=== PATIENT | male | born 1945 | race Caucasian/White ===

== ENCOUNTER → 2016-09-14 | Outpatient (CLI) | payer BC, MEDICARE ==
[2016-09-14 10:57] LABS: Basophils # (A) 0.1 k/uL (0-0.2); Basophils % (A) 1 %; CH 30.9; CHCM 32.9; Eosinophils # (A) 0.1 k/uL (0-0.7); Eosinophils % (A) 2 %; HCT 44.7 % (39.0-53.0); HDW 2.22; HGB 14.5 gm/dL (13.0-17.5); Luc # (Auto) 0.12; Luc % (Auto) 1; Lymphocytes # (A) 1.9 k/uL (1.0-4.8); Lymphocytes % (A) 22 %; MCH 30.6 pg (25.0-35.0); MCHC 32.4 g/dL (31.0-37.0); MCV 94.2 fL (80.0-100.0); Mean Platelet Volume 7.6; Monocytes # (A) 0.5 k/uL (0-1.0); Monocytes % (A) 5 %; Neutrophils # (A) 6.1 k/uL (1.3-7.7); Neutrophils % (A) 69 %; RBC 4.74 m/uL (4.30-5.90); WBC 8.7 k/uL (3.8-10.6); WBC (Perox) 9.01
[2016-09-14 11:07] LABS: Partial Thromboplastin Time 24.1 sec (22.0-30.0); Prothrombin Time 9.8 sec (9.0-12.0)
[2016-09-14 11:24] LABS: Potassium 4.6 mmol/L (3.5-5.1)
== END | disposition home or self-care (01) ==
LOC: LABMOB 10:14
PROVIDERS: ATTEND Orthopaedic Surgery
DX: Z01.812 Encounter for preprocedural laboratory examination (principal); M19.012 Primary osteoarthritis, left shoulder; Z51.81 Encounter for therapeutic drug level monitoring; Z79.01 Long term (current) use of anticoagulants
CPT/HCPCS: 36415; 80051; 85025; 85610; 85730

== ENCOUNTER 2016-10-04 07:08 | Inpatient (IN) | payer BC, MEDICARE ==
[2016-09-29 11:25] VITALS: BMI 29.5
--- NOTE | 2016-10-03 11:31 | HP ---
DATE OF ADMISSION: CHIEF COMPLAINT: Left shoulder pain. 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 He is having pain with overhead use and at night. He has tried medications with only partial temporary relief. PAST MEDICAL HISTORY: Significant for arthritis. PAST SURGICAL HISTORY: Significant for right total shoulder arthroplasty. CURRENT MEDICATIONS: 1. Aspirin. 2. Ibuprofen. He denies drug allergies. FAMILY HISTORY: Significant for heart disease. SOCIAL HISTORY: Significant for previous tobacco use; however, he quit in 1964. Sixteen-point review of systems otherwise reviewed and is noncontributory. On examination, the patient is approximately 6 feet tall, 210 pounds of mesomorphic habitus. HEENT exam is nonfocal. Neck is supple. On examination of his left shoulder, he is tender about the anterior subacromial space the anterior glenohumeral joint. He has moderate subacromial crepitus. Active range of motion, forward elevation 135 degrees, external rotation with arm at the side 15 degrees, internal rotation to T12. Motor strength is 5/5 for abduction and external rotation. Impingement, Neer test are positive. His distal neurovascular exam appears be intact in the left upper extremity. X-rays to include AP outlet and axillary lateral views of the left shoulder obtained in the office show severe glenohumeral joint osteoarthrosis with maintained humeral head to acromial distance. IMPRESSION: Left shoulder severe glenohumeral joint osteoarthrosis. RECOMMENDATIONS: I talked to the patient at length regarding his treatment options. At this point he is quite symptomatic despite conservative measures. After thorough discussion, he opts to proceed with surgery. We will plan to proceed with left total shoulder arthroplasty. Risks and benefits are discussed at length in layman's terms.
[~2016-10-04 07:08] MED LIST: ACETAMINOPHEN TAB 500 MG TAB PO ONE; DEXAMETHASONE SOD PHOSPHATE 10 MG/ML 1 ML VIAL IV ONE; HYDROmorphone 1 MG/ML 1 ML SYRINGE IVP PRN; MELOXICAM 7.5 MG TAB PO ONE; MIDAZOLAM 2 MG/2 ML VIAL IV PRN; ONDANSETRON 4 MG/2 ML VIAL IVP ONE; TRANEXAMIC ACID 1,000 MG in SODIUM CHLORIDE 0.9% 100 ML IVPB ONE; ceFAZolin 2 GM in SODIUM CHLORIDE 0.9% 100 ML IVPB ONE
[2016-10-04] MEDS ORDERED: LIDOCAINE 1% 20 ML VIAL (10MG/ML) FOR IV START INTRADERMA ONE (09:33)
[2016-10-04] MEDS: LACTATED RINGERS 1,000 ML IV SCH (09:34)
[2016-10-04] MEDS ORDERED: NEOSTIGMINE 1 MG/ML 10 ML VIAL ONE (10:55)
[2016-10-04] MEDS ORDERED: PHENYLEPHRINE-0.9% NACL SYG 1 MG/10 ML SYRINGE ONE (10:55)
[2016-10-04] MEDS ORDERED: fentaNYL (PF) 50 MCG/ML 2 ML AMP ONE (10:55)
[2016-10-04] MEDS ORDERED: MIDAZOLAM 2 MG/2 ML VIAL ONE (10:55)
[2016-10-04] MEDS ORDERED: SUCCINYLCHOLINE CHLORIDE 100 MG/5 ML SYR IV ONE (10:55)
[2016-10-04] MEDS ORDERED: ROPIVACAINE 5 MG/ML 30 ML VIAL ONE (10:55)
[2016-10-04] MEDS ORDERED: LIDOCAINE 2%-EPI 1:100,000 20 ML VIAL ONE (10:55)
[2016-10-04] MEDS ORDERED: ROCURONIUM BROMIDE 10 MG/ML 10 ML VIAL IV ONE (10:55)
[2016-10-04] MEDS ORDERED: LIDOCAINE 1% INJ 10MG/ML (20 ML MDV) ONE (10:55)
[2016-10-04] MEDS ORDERED: GLYCOPYRROLATE 0.2 MG/ML 2 ML VIAL ONE (10:55)
[2016-10-04] MEDS ORDERED: PROPOFOL 10 MG/ML 20 ML VIAL IV ONE (10:55)
[2016-10-04] MEDS ORDERED: ceFAZolin 3,000 MG in SODIUM CHLORIDE 0.9% IRRIGATIO 3,000 ML IRRIGATION ONE (11:37)
[2016-10-04] MEDS ORDERED: LACTATED RINGERS 1,000 ML IV ONE (13:07)
[2016-10-04] MEDS ORDERED: HYDROcodone/APAP 7.5-325MG 1 EACH TAB PO PRN (13:42)
[2016-10-04] MEDS ORDERED: NALOXONE 0.4 MG/ML 1 ML VIAL IV PRN (13:42)
[2016-10-04] MEDS ORDERED: ONDANSETRON 4 MG/2 ML VIAL IVP PRN (13:42)
--- NOTE | 2016-10-04 13:42 | P.OP ---
Date of Procedure: 10/04/16 Preoperative Diagnosis: Severe left glenohumeral joint osteoarthrosis Postoperative Diagnosis: Same Procedure(s) Performed: Left total shoulder arthroplasty Implants: [employer] size 14 press-fit humeral stem, 52 mm +18 eccentric humeral head, 52 mm pegged cemented glenoid component. Anesthesia: [facility] Surgeon: Mikey Mares Estimated Blood Loss (ml): 250 Pathology: other (Humeral head) Condition: stable Disposition: PACU Indications for Procedure: The patient is a 71-year-old gentleman who presents with progressive left shoulder pain secondary to severe glenohumeral joint osteoarthrosis despite conservative measures. A discussion of the risks and benefits of operative intervention versus continued conservative measures was made with patient. He opted to proceed with surgery. Operative risks to include infection, neurovascular injury, development of blood clots, possible component loosening, possible dislocation and need for subsequent procedures was discussed. Informed consent was obtained. Operative Findings: As below Description of Procedure: The patient was brought to the operating room, and after induction of general anesthesia was placed in a beachchair position. The bony prominences were appropriately padded. I examined the left shoulder. He did have limitation of full forward elevation and abduction. The left upper extremity was prepped and draped in normal fashion. A deltopectoral incision was made lateral to the coracoid process extending approximately 12 cm. The skin was incised sharply. Subcutaneous tissues were divided bluntly. Electrocautery was used for hemostasis. The deltopectoral interval was identified and the cephalic vein gently retracted laterally with deltoid. Subdeltoid adhesions were bluntly dissected. A self-retaining retractor was placed. The clavipectoral fascia was opened and the conjoined tendon was gently retracted medially. The biceps was identified and the bicipital groove was then removed. The rotator interval was opened to the glenoid. A biceps tenotomy is performed along with a lesser tuberosity osteotomy. The capsular was released off the humeral head and neck subperiosteally. I expose the inferior osteophytes which were then removed at the junction of the [place] bone. The shoulder was gently dislocated. A starting hole was made in line with the humeral shaft and bicipital groove. The humeral shaft was then hand reamed up to a size 14. There is good distal fit and chatter. The humeral head cutting guide was placed planning on 30 of retroversion. This was cut flush with the rotator cuff insertion on the greater tuberosity. The head sized most appropriately at 52 mm +18. Attention was then paid towards preparing the glenoid. A posterior and anterior retractor placed. The labrum was released from the 12:00 counterclockwise to the 6 o'clock position. I felt there was adequate glenoid exposure at this point. The biceps was excised from the superior labrum. A guidepin was then placed into the central portion of the glenoid anterior to posterior and inferior to superior. I followed the [place] version. The glenoid was then reamed down to a bleeding stable bony surface. The central peg hole was drilled. The glenoid sized most appropriately at 52 mm. The guide was then placed in the peripheral peg holes were drilled. A trial 52 mm component was placed and had good anterior to posterior and superior to inferior fit. Trial component was then removed. The bony surface was dried and the peripheral peg holes were pressurized with cement utilizing a syringe. Excess cement was removed. I did place bone graft from the central peg on the final component. This was then inserted and was fully seated. This was held in place until the cement had sufficiently hardened. Attention was then paid towards preparing the proximal humerus. The appropriate broach was inserted in 30 of retroversion and was fully seated. There is good rotational stability. This was removed and the trial size 14 component was placed in the same rotation and was seated. An eccentric 52 mm +18 head was placed. The shoulder was gently relocated. It was taken through range of motion. I was able to obtain full flexion and extension with good stability with internal and external rotation. I felt there was adequate mu-ism of soft tissue tension. The shoulder was gently dislocated and the trial components were removed. A #2 Ethibond was placed laterally for reattachment of the lesser tuberosity. The final stem was inserted in 30 of retroversion and was fully seated. There was good rotational stability. The eccentric 52 mm +18 head was placed. It was gently impacted. The shoulder was relocated and taken through range of motion and felt to be again stable. Pulsatile lavage was utilized. A lesser tuberosity was reattached with the previously placed #2 Ethibond suture. The rotator interval was closed with #2 Ethibond suture. The subcutaneous tissues were reapproximated with interrupted 2-0 Vicryl sutures. The skin was reapproximated with 3-0 subcuticular strata fix suture. Skin tape and adhesive was applied. A sterile dressing was applied in addition to a sling. The patient was then awoken from general anesthesia and transferred to recovery room in good condition. Blood loss was estimated at 250 mL. No complications were incurred. Sponge and needle counts were correct in the case.
--- NOTE | 2016-10-04 14:10 | XR ---
EXAMINATION TYPE: XR shoulder limited LT DATE OF EXAM: 10/04/2016 2:05 PM COMPARISON: NONE HISTORY: Pain TECHNIQUE: Shoulder examined in 3 FINDINGS: There is a left humeral prosthesis. The glenoid articulates with the prosthesis. No acute fractures e vident post insertion. IMPRESSION: 1. Normal postsurgical left shoulder
[2016-10-04] MEDS: ceFAZolin 2 GM in SODIUM CHLORIDE 0.9% 100 ML IVPB SCH (17:06)
[2016-10-04] MEDS: NICOTINE 21MG/24HR PATCH TRANSDERM SCH (17:06)
[2016-10-04] MEDS: HYDROcodone/APAP 7.5-325MG 1 EACH TAB PO PRN (23:41)
[2016-10-05] MEDS: HYDROmorphone 1 MG/ML 1 ML SYRINGE IVP PRN ×3 (01:59→09:46)
[2016-10-05] MEDS: ceFAZolin 2 GM in SODIUM CHLORIDE 0.9% 100 ML IVPB SCH (03:01)
[2016-10-05] MEDS: HYDROcodone/APAP 7.5-325MG 1 EACH TAB PO PRN ×2 (04:47→11:36)
[2016-10-05] MEDS: LACTATED RINGERS 1,000 ML IV SCH (04:49)
[2016-10-05 07:44] LABS: Basophils % (A) 0 %; CH 30.5; CHCM 32.4; Eosinophils % (A) 0 %; HCT 32.7 % (39.0-53.0); HDW 2.17; Luc # (Auto) 0.17; Luc % (Auto) 2; Lymphocytes # (A) 1.4 k/uL (1.0-4.8); Lymphocytes % (A) 13 %; MCH 30.1 pg (25.0-35.0); MCHC 31.9 g/dL (31.0-37.0); MCV 94.5 fL (80.0-100.0); Mean Platelet Volume 7.5; Monocytes # (A) 0.4 k/uL (0-1.0); Monocytes % (A) 4 %; Neutrophils # (A) 8.5 k/uL (1.3-7.7); Neutrophils % (A) 81 %; RBC 3.46 m/uL (4.30-5.90); RDW 12.8 % (11.5-15.5); WBC 10.5 k/uL (3.8-10.6); WBC (Perox) 10.72
[2016-10-05 07:49] LABS: HGB 10.4 gm/dL (13.0-17.5)
[2016-10-05] MEDS: NICOTINE 21MG/24HR PATCH TRANSDERM SCH (08:35)
[2016-10-05] MEDS ORDERED: RIVAROXABAN 10 MG TAB PO SCH (09:00)
[2016-10-05 09:03] VITALS: RESP 16
--- NOTE | 2016-10-05 11:29 | P.PN ---
Progress Note - Text S: The patient has no complaints. They deny shortness of breath or chest pain. 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
--- NOTE | 2016-10-05 11:39 | P.DS ---
Providers Date of admission: 10/04/16 08:47 10/03/2016 Expected date of discharge: 10/04/16 Attending physician: Mikey Mares Consults: 10/04/16 13:51 Consult Physician Routine Consulting Provider: Aristides Meier Consult Reason/Comments: medical management Do you want consulting provider notified?: Yes Primary care physician: [facility] Course: The patient underwent left total shoulder arthroplasty without complication. Postoperatively, he had good return of bowel and bladder function. His incision was clean and dry. His vital signs were stable. His pain was well tolerated. Procedures: Left total shoulder arthroplasty Patient Condition at Discharge: Good Plan - Discharge Summary New Discharge Prescriptions: Aspirin EC [Ecotrin] 325 mg PO BID #60 tablet. HYDROcodone/APAP 7.5-325MG [[place] 7.5-325] 1 - 2 tab PO Q4H PRN #60 tab PRN Reason: Pain/Discomfort Discharge Medication List Aspirin [Adult Low Dose Aspirin EC] 81 mg PO DAILY 10/05/15 [History] Ascorbic Acid [Vitamin C] 500 mg PO DAILY 09/30/16 [History] Atorvastatin [Lipitor] 20 mg PO DAILY 09/30/16 [History] amLODIPine BESYLATE [Norvasc] 2.5 mg PO DAILY 09/30/16 [History] Aspirin EC [Ecotrin] 325 mg PO BID #60 tablet. 10/05/16 [Rx] HYDROcodone/APAP 7.5-325MG [[place] 7.5-325] 1 - 2 tab PO Q4H PRN #60 tab [Rx] Follow up Appointment(s)/Referral(s): Bobby Patel PAC [PHYSICIAN STAFF ENGINEER] - 10 Days Activity/Diet/Wound Care/Special Instructions: Wear sling multimedia artist. Keep wound clean and dry. May work on hand/wrist exercises. Follow-up Anibal Patel PA-C and 10-14 days. Aspirin 325 mg twice daily with meals 30 days.
[2016-10-05] MEDS ORDERED: amLODIPine 2.5 MG TAB PO SCH (11:45)
[2016-10-05] MEDS ORDERED: ATORVASTATIN 20 MG TAB PO SCH (11:45)
--- NOTE | 2016-10-05 12:59 | CONS ---
DATE OF CONSULTATION: 10/05/2016 REASON FOR CONSULTATION: Medical management requested by Dr. Mares. 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 Moore. Patient's chronic stable medical conditions include hypertension, hyperlipidemia, osteoarthritis. Patient has undergone left total shoulder arthroplasty. Patient's left arm is in a sling. The patient's local anesthesia has worn off and some pain is present though patient has been out of bed. No nausea or vomiting. Did tolerate his breakfast. No chest pain. Patient is a smoker. REVIEW OF SYSTEMS: CONSTITUTIONAL: None. HEENT: None. RESPIRATORY: None. CARDIOVASCULAR: None. GASTROINTESTINAL: None. GENITOURINARY: None. MUSCULOSKELETAL: Pain in different joints. DERMATOLOGICAL: None. HEMATOLOGIC: None. LYMPHATICS: None. PSYCHIATRY: None. NEUROLOGICAL: None. PAST MEDICAL HISTORY: Hypertension, hyperlipidemia, osteoarthritis in different joints. PAST SURGICAL HISTORY: Joint ( ), tonsillectomy, right shoulder replacement, eyelid surgery, total left shoulder replacement yesterday. SOCIAL HISTORY: The patient smokes a pack a day for over 50 years. Lives with his son. Alcohol occasionally. FAMILY HISTORY: Reviewed, noncontributory to the presentation. HOME MEDICATIONS: 1. Norvasc 2.5 mg a day. 2. Lipitor 20 mg a day. 3. Aspirin 81 mg a day. 4. Vitamin C 500 mg a day. 5. Etoile 7.5 one to two tablets q.4 p.r.n. 6. Aspirin 325 b.i.d. for DVT prophylaxis. ALLERGIES: None. On examination, temperature 97.5, pulse 80, respirations 18, blood pressure 111/74, pulse ox 94% on room air. GENERAL APPEARANCE: Average built, sitting up, comfortable. EYES: Pupils equal. Conjunctivae normal. HEENT: External appearance of nose and ears normal. Oral cavity normal. NECK: JVD not raised. Mass not palpable. RESPIRATORY: Effort normal. Lungs are clear. CARDIOVASCULAR: First and second sounds normal. No edema. ABDOMEN: Soft, nontender. Liver and spleen not palpable. LYMPHATIC: No lymph nodes palpable in the neck or axillae. PSYCHIATRY: Alert and oriented x3. Mood and affect normal. NEUROLOGICAL: Pupils equal. Cranial nerves grossly intact. Power and sensation grossly intact. EXTREMITIES: Left arm in a sling. ( ) present in the left fingers. INVESTIGATIONS: Hemoglobin 10.4. ASSESSMENT: 1. Essential hypertension. 2. Hyperlipidemia. 3. Chronic nicotine dependence. Patient is a smoker. 4. Normocytic anemia, cause unknown. PLAN: Patient's home medications are resumed. DVT prophylaxis per Dr. Mares. Pain control is in place. Patient advised against smoking. He is taking a nicotine patch. Patient should follow up with Dr. Moore upon discharge. Care was discussed with the patient. Thank you, Dr. Mares.
[2016-10-05 14:06] VITALS: BP 134/79; PULSE 81; TEMP 98.3
== END 2016-10-05 15:40 | disposition home or self-care (01) | DRG 483 ==
LOC: 2ORMAIN 08:47 → 3SUR 14:55
PROVIDERS: ADMIT Orthopaedic Surgery; ATTEND Orthopaedic Surgery
PROC: 0RRK0JZ Replacement of Left Shoulder Joint with Synthetic Substitute, Open Approach (ICD-10-PCS; principal; 2016-10-04 10:25)
DX: M19.012 Primary osteoarthritis, left shoulder (principal); D64.9 Anemia, unspecified; I10 Essential (primary) hypertension; E78.5 Hyperlipidemia, unspecified; F17.210 Nicotine dependence, cigarettes, uncomplicated; Z79.82 Long term (current) use of aspirin; Z79.899 Other long term (current) drug therapy
CPT/HCPCS: 64415; 85025; 88300

== ENCOUNTER → 2017-12-25 | Outpatient (CLI) | payer BC, MEDICARE ==
[2017-12-25 10:17] LABS: ALT 31 U/L (21-72); AST 26 U/L (17-59); Cholesterol 106 mg/dL (<200); HDL Cholesterol 35 mg/dL (40-60); LDL Cholesterol,Calculated 57 mg/dL (0-99); Triglycerides 72 mg/dL (<150)
== END | disposition home or self-care (01) ==
LOC: LABWHC1 08:43
PROVIDERS: ATTEND Internal Medicine Interventional Cardiology
DX: E78.2 Mixed hyperlipidemia (principal)
CPT/HCPCS: 36415; 80061; 84450; 84460

== ENCOUNTER → 2018-07-02 | Outpatient (CLI) | payer BC, MEDICARE | END | disposition home or self-care (01) | LOC: LABWHC1 15:33 | PROVIDERS: ATTEND Urology | DX: R97.20 Elevated prostate specific antigen [PSA] (principal) | CPT/HCPCS: 36415; 84153 ==

== ENCOUNTER → 2018-08-09 | Outpatient (CLI) | payer BC, MEDICARE ==
[2018-08-09 17:54] LABS: LDL Cholesterol,Calculated 52.2 mg/dL (0.0-131.0); VLDL Calculation 12.8 mg/dL (5.00-40.00)
== END | disposition home or self-care (01) ==
LOC: LABWHC1 07:20
PROVIDERS: ATTEND Internal Medicine Interventional Cardiology
DX: E78.2 Mixed hyperlipidemia (principal)
CPT/HCPCS: 36415; 80061; 84450; 84460

== ENCOUNTER 2018-11-21 12:05 | Day surgery (SDC) | payer BC, MEDICARE ==
[2018-11-20 10:08] VITALS: BMI 29.1
[2018-11-21 12:43] VITALS: RESP 18; TEMP 97.2
[2018-11-21] MEDS: LIDOCAINE 1% 20 ML VIAL (10MG/ML) FOR IV START INTRADERMA ONE (12:44)
[2018-11-21] MEDS: LACTATED RINGERS 1,000 ML IV SCH (12:45)
[2018-11-21] MEDS ORDERED: LIDOCAINE 1% INJ 10MG/ML (20 ML MDV) ONE (13:42)
[2018-11-21] MEDS ORDERED: PROPOFOL 10 MG/ML 20 ML VIAL IV ONE (13:42)
--- NOTE | 2018-11-21 13:57 | P.PCN ---
Date of Procedure: 11/21/18 Procedure(s) Performed: BRIEF HISTORY: Patient is a 73-year-old pleasant male, scheduled for an elective colonoscopy as a part of value should of prior history of colon polyps. Last colonoscopy was 3 years ago. PROCEDURE PERFORMED: Colonoscopy with biopsy. PREOPERATIVE DIAGNOSIS: History of colon polyps. IV sedation per Anesthesia. PROCEDURE: After informed consent was obtained, the patient, was brought into the endoscopy unit. IV sedation was administered by Anesthesia under continuous monitoring. Digital rectal examination was normal. Initially the Olympus CF-160 flexible video colonoscope was then inserted in the rectum, gradually advanced into the cecum without any difficulty. Careful examination was performed as the scope was gradually being withdrawn. Ileocecal valve and the appendiceal orifice were visualized and appeared normal. Prep was excellent. The cecum there was a 3 mm sessile polyp that was removed by cold biopsy. Mucosa of the cecum, ascending colon, transverse colon, descending colon, sigmoid colon, and rectum appeared normal. Retroflexion was performed in the rectum and no lesions were seen. In the sigmoid colon there was a 3 mm polyp removed by cold biopsy. Scattered sigmoid diverticula seen. The patient tolerated the procedure well. IMPRESSION: 2-3 mm sessile cecal polyp status post removal by cold biopsy 3 mm sessile sigmoid polyp status post removal by cold biopsy Scattered sigmoid diverticulosis RECOMMENDATIONS: Findings of this examination were discussed with the patient as well as a family. She he was advised to follow with the biopsy results and have a repeat colonoscopy in 5 years.
[2018-11-21 14:40] VITALS: BP 130/83; PULSE 76
== END 2018-11-21 14:54 | disposition home or self-care (01) ==
LOC: ORWHC2ENDO 12:05
PROVIDERS: ATTEND Internal Medicine Gastroenterology
DX: Z86.010 Personal history of colon polyps (principal); D12.0 Benign neoplasm of cecum; D12.5 Benign neoplasm of sigmoid colon; K57.30 Diverticulosis of large intestine without perforation or abscess without bleeding; Z79.899 Other long term (current) drug therapy; I10 Essential (primary) hypertension; E78.5 Hyperlipidemia, unspecified
CPT/HCPCS: 88305; 45380; J2001; J2704

== ENCOUNTER → 2019-05-08 | Outpatient (CLI) | payer MEDICARE, BC ==
[2019-05-08 16:07] LABS: African American GFR (CKD) 85.6 (60.0-200.0); Albumin 4.3 g/dL (3.80-4.90); Albumin/Globulin Ratio 2.39 (1.60-3.17); Anion Gap 4.8 mmol/L (4.00-12.00); Calcium 9.5 mg/dL (8.7-10.3); Carbon Dioxide 29.2 mmol/L (21.6-31.8); Chol/HDL Ratio 3.27; Globulin 1.8 g/dL (1.6-3.3); Potassium 4.5 mmol/L (3.5-5.5); Total Bilirubin 0.4 mg/dL (0.3-1.2); Total Protein 6.1 g/dL (6.2-8.2)
== END | disposition home or self-care (01) ==
LOC: LABWHC1 08:50
PROVIDERS: ATTEND Internal Medicine Interventional Cardiology
DX: E78.2 Mixed hyperlipidemia (principal)
CPT/HCPCS: 36415; 80053; 80061

== ENCOUNTER → 2020-06-26 | Outpatient (CLI) | payer MEDICARE, BC ==
[2020-06-26 21:01] LABS: Anion Gap 6.7 mmol/L (4.00-12.00); Calcium 9.4 mg/dL (8.7-10.3); Carbon Dioxide 28.3 mmol/L (21.6-31.8); Non-African American GFR(CKD) 73.3 (60.0-200.0); Potassium 4.5 mmol/L (3.5-5.5)
== END | disposition home or self-care (01) ==
LOC: LABWHC1 12:33
PROVIDERS: ATTEND Nurse Practitioner Adult Health
DX: I10 Essential (primary) hypertension (principal)
CPT/HCPCS: 36415; 80048

== ENCOUNTER → 2020-07-02 | Outpatient (CLI) | payer MEDICARE, BC ==
[2020-07-02 20:02] LABS: African American GFR (CKD) 75.2 (60.0-200.0); Anion Gap 7.1 mmol/L (4.00-12.00); BUN/Creat Ratio 17.27 Ratio (12.00-20.00); Calcium 9.3 mg/dL (8.7-10.3); Carbon Dioxide 26.9 mmol/L (21.6-31.8); Non-African American GFR(CKD) 64.9 (60.0-200.0); Potassium 4.5 mmol/L (3.5-5.5)
== END | disposition home or self-care (01) ==
LOC: LABWHC1 11:05
PROVIDERS: ATTEND Nurse Practitioner Adult Health
DX: I10 Essential (primary) hypertension (principal)
CPT/HCPCS: 36415; 80048

== ENCOUNTER → 2020-07-29 | Outpatient (CLI) | payer MEDICARE, BC ==
--- NOTE | 2020-07-29 15:04 | CT ---
EXAMINATION TYPE: CT lumbar spine wo con DATE OF EXAM: 07/29/2020 COMPARISON: None HISTORY: Low back pain CT DLP: 887 mGycm CONTRAST: None TECHNIQUE: CT of the lumbar spine is performed on a spiral scan at 3 mm thick sections. Reconstructed images are performed in the coronal and sagittal planes. FINDINGS: T12-L1: No focal disc herniation or significant disc bulge is evident. No spinal canal stenosis or neural foraminal stenosis is present. L1-L2: No focal disc herniation or significant disc bulge is evident. No spinal canal stenosis or n eural foraminal stenosis is present L2-L3: Normal disc bulging is anterior thecal sac flattening. No AP spinal canal stenosis or neural f oraminal stenosis is present. L3-L4: Broad-based disc bulge has anterior thecal sac flattening. Facet hypertrophy and ligamentum fl avum laxity is posterior lateral thecal sac compression. No spinal canal stenosis present. Mild cynthia inal narrowing is present. L4-L5: Severe Facet hypertrophy and degenerative change with ligamentum flavum laxity. This has later al canal narrowing. There is an anterior spondylolisthesis, grade 1. Disc uncovering has moderate ant erior thecal sac compression. This is contributing to spinal canal stenosis. L5-S1: No focal disc herniation or significant disc bulge is evident. No spinal canal stenosis or n eural foraminal stenosis is present IMPRESSION: 1. Grade 1 spondylolisthesis facet hypertrophy and degenerative change contributing to severe spinal canal stenosis L4-5. 2. Mild disc bulging L2-3 L3-4 with anterior thecal sac flattening.
== END | disposition home or self-care (01) ==
LOC: RADCTMAIN 13:04
PROVIDERS: ATTEND Orthopaedic Surgery
DX: M48.061 Spinal stenosis, lumbar region without neurogenic claudication (principal); M51.26 Other intervertebral disc displacement, lumbar region; M43.16 Spondylolisthesis, lumbar region; M47.816 Spondylosis without myelopathy or radiculopathy, lumbar region
CPT/HCPCS: 72131

== ENCOUNTER → 2021-01-26 | Outpatient (CLI) | payer MEDICARE, BC | END | disposition home or self-care (01) | DX: E78.2 Mixed hyperlipidemia (principal) | CPT/HCPCS: 36415; 80053; 80061 ==

== ENCOUNTER → 2021-06-07 | Outpatient (CLI) | payer MEDICARE, BC ==
--- NOTE | 2021-06-07 18:05 | CTL ---
EXAMINATION TYPE: CT Low Dose Lung DATE OF EXAM ORDERED: 06/07/2021 HISTORY: Personal tobacco use. Lung cancer screening CT DLP: [address] CTDI: 2.14 mGy Automated exposure control for dose reduction was used. SCREENING VISIT: Initial COMPARISON: None TECHNIQUE: Low dose computed tomography scan was performed through the chest at 1 mm thick sections a nd reconstructed images in the coronal plane at [address] DIAGNOSTIC QUALITY: Satisfactory FINDINGS: LUNG NODULES: None. LUNGS: COPD: Severity: Mild some mild peribronchial thickening is present, correlate for chronic bronchitis . Fibrosis: Severity: None Lymph nodes: There is a 1.7 cm lymph node with a large fatty hilum in the pretracheal space. This was present for 06/12/2013. Other findings: None RIGHT PLEURAL SPACE: Effusion: None Calcification: None Thickening: None Pneumothorax: None LEFT PLEURAL SPACE: Effusion: None Calcification: None Thickening: None Pneumothorax: None HEART: Heart Size: Normal Coronary calcification: Moderate coronary artery calcification is present. Pericardial effusion: Normal OTHER FINDINGS: Upper abdomen: There appears to be a cyst within the liver. Bony thorax: Normal Supraclavicular region: Normal Other: Ascending thoracic aorta at the level the main pulmonary artery measures 4.3 cm. The main pul monary artery at the bifurcation measures 2.3 cm. IMPRESSION: 1. No suspicious changes to suggest metastatic or primary neoplasm. FOLLOW UP CT CHEST RECOMMENDATION: Low-dose CT chest [address] LUNG RAD: Lung-Rad 2 Benign Appearance or Behavior
== END | disposition home or self-care (01) ==
LOC: RADCTMAIN 09:34
PROVIDERS: ATTEND Family Medicine
DX: Z12.2 Encounter for screening for malignant neoplasm of respiratory organs (principal); F17.210 Nicotine dependence, cigarettes, uncomplicated
CPT/HCPCS: 71271

== ENCOUNTER → 2022-06-24 | Outpatient (CLI) | payer MEDICARE, BC ==
--- NOTE | 2022-06-24 14:34 | CTL ---
EXAMINATION TYPE: CT Low Dose Lung DATE OF EXAM ORDERED: 06/24/2022 HISTORY: . Lung cancer screening CT DLP: 126.[address] CTDI: 3.1 mGy Automated exposure control for dose reduction was used. SCREENING VISIT: 2 COMPARISON: 06/07/2021 TECHNIQUE: Low dose computed tomography scan was performed through the chest at 1 mm thick sections a nd reconstructed images in multiple planes at 1 mm and [address] DIAGNOSTIC QUALITY: Satisfactory FINDINGS: There are marked emphysematous changes. There are no suspicious lung masses or nodules. There is no airspace or interstitial density. There is no pleural effusion or pneumothorax. There is mild aneurysmal dilatation of the ascending thoracic aorta measuring 4.1 cm. There is no med iastinal, hilar or focal lytic or blastic osseous abnormalities are seen. Limited scanning through the upper abdomen reveals no gross abnormality or there are multiple small h ypodensities within the liver most likely representing cysts or hemangiomas. They were seen previousl y and are stable. IMPRESSION: 1. Lung RADS category 1 negative. Continue routine screening yearly intervals in this high risk patie nt. 2. Marked emphysematous change. 3. No acute cardiopulmonary disease. 4. Stable mild aneurysmal dilatation of the ascending thoracic aorta.
== END | disposition home or self-care (01) ==
LOC: RADCTMAIN 12:46
PROVIDERS: ATTEND Family Medicine
DX: Z12.2 Encounter for screening for malignant neoplasm of respiratory organs (principal); J43.9 Emphysema, unspecified; I71.21 Aneurysm of the ascending aorta, without rupture; Z87.891 Personal history of nicotine dependence
CPT/HCPCS: 71271

== ENCOUNTER → 2023-01-27 | Outpatient (CLI) | payer MEDICARE, BC ==
[2023-01-27 16:59] LABS: ALT 31 U/L (10-49); AST 33 U/L (14-35); Chol/HDL Ratio 2.28 Ratio; LDL Cholesterol,Calculated 44.4 mg/dL (0.0-131.0); VLDL Calculation 12.86 mg/dL (5.00-40.00)
== END | disposition home or self-care (01) ==
LOC: LABWHC1 07:27
PROVIDERS: ATTEND Internal Medicine Interventional Cardiology
DX: E78.2 Mixed hyperlipidemia (principal)
CPT/HCPCS: 36415; 80061; 84450; 84460

== ENCOUNTER → 2023-05-03 | Outpatient (CLI) | payer MEDICARE, BC ==
[2023-05-03 14:34] LABS: African American GFR (CKD) 81 (>60 ml/min/1.73 sqM); Blood Urea Nitrogen 16 mg/dL (9-20); Non-African American GFR(CKD) 70 (>60 ml/min/1.73 sqM)
--- NOTE | 2023-05-03 20:02 | CT ---
EXAMINATION TYPE: CT angio thor/abd pel aorta CT DLP: 1650.9 mGycm, Automated exposure control for dose reduction was used. DATE OF EXAM: 05/03/2023 4:16 PM COMPARISON: 11/01/2012. CLINICAL INDICATION:Male, 77 years old with history of I71.2 THORACIC AORTIC ANEURYSM; PHH, aneurysm TECHNIQUE: Dissection protocol: Multiple axial CT images of the chest, abdomen, and pelvis were obtai tasha prior and to the administration of IV contrast. 3-D reformats and maximum intensity projection fo rmat were performed on a separate workstation. Contrast used:100 mL of Isovue 370 without and with IV Contrast, Oral contrast used: None FINDINGS: ARTERIAL VASCULATURE: No evidence fracture minimal hematoma on noncontrast imaging. There are scatter ed atherosclerotic ossifications present. Postcontrast imaging does not demonstrate evidence for inti mal flap to suggest dissection. The ascending thoracic aorta measures up to 3.9 cm and is within norm al limits. The descending thoracic aorta is within normal limits for size. The abdominal aorta is wit hin normal limits for size. The origins of the celiac axis, superior mesenteric artery, bilateral fac et renal arteries which are 2 renal arteries bilaterally are all patent. The inferior mesenteric bola luann patent. The common iliac and external iliac arteries are patent. Is mild tortuosity of the thora cic aorta as it enters the inferior aspect of the thorax. PULMONARY ARTERIAL VASCULATURE: Normal caliber. No evidence of filling defect to suggest pulmonary em bolus. VENOUS SYSTEM: Unremarkable. Lungs/pleura: Moderate emphysema changes throughout the lungs. No evidence for focal consolidation, p neumothorax or pleural effusion. Heart: The heart is within normal limits for size. There is aortic valve leaflet calcifications. Mode rate coronary artery cusp patient's. Mediastinum: No gross evidence of adenopathy. Lower Neck: No significant findings. Soft tissues: Mild gynecomastia changes bilaterally. Abdomen: Liver: Scattered probable hepatic cyst. Gallbladder and Bile ducts: Unremarkable. Pancreas: Unremarkable. Spleen: Unremarkable. Adrenal glands: Unremarkable. Kidneys and Ureters: Unremarkable. No hydronephrosis. Bladder: Unremarkable. Reproductive: Prostate gland is enlarged measuring up to 5.8 cm in transverse dimension. Stomach and Bowel: Unremarkable. No evidence of bowel obstruction. Peritoneum: No evidence of pneumoperitoneum, free fluid, or adenopathy. Musculoskeletal: The osseous structures appear intact. Lymph nodes: No evidence of lymphadenopathy. Abdominal wall/soft tissues: Left fat-containing inguinal hernia. IMPRESSION: 1. No evidence for aortic dissection, aneurysm or occlusion. 2. Moderate atherosclerosis of the arterial vasculature. 3. Moderate emphysema changes.
== END | disposition home or self-care (01) ==
LOC: RADCTMAIN 13:49
PROVIDERS: ATTEND Internal Medicine Interventional Cardiology
DX: I71.20 Thoracic aortic aneurysm, without rupture, unspecified (principal); J43.9 Emphysema, unspecified; I70.8 Atherosclerosis of other arteries
CPT/HCPCS: 82565; 84520; 71275; 74174; Q9967

== ENCOUNTER → 2023-10-10 | Outpatient (CLI) | payer MEDICARE, BC ==
[2023-10-10 11:42] LABS: ALT 27 U/L (10-49); AST 28 U/L (14-35); Albumin 4.3 g/dL (3.8-4.9); Albumin/Globulin Ratio 1.87 Ratio (1.60-3.17); Alkaline Phosphatase 72 U/L (41-126); Blood Urea Nitrogen 21.4 mg/dL (9.0-27.0); Calcium 9.5 mg/dL (8.7-10.3); Carbon Dioxide 24.2 mmol/L (21.6-31.8); Chloride 102 mmol/L (96-109); Chol/HDL Ratio 2.59 Ratio; Globulin 2.3 g/dL (1.6-3.3); Glucose 112 mg/dL (70-110); LDL Cholesterol,Calculated 49.8 mg/dL (0.0-131.0); Potassium 4.6 mmol/L (3.5-5.5); Sodium 137 mmol/L (135-145); Total Bilirubin 0.5 mg/dL (0.3-1.2); Total Protein 6.6 g/dL (6.2-8.2); VLDL Calculation 19.52 mg/dL (5.00-40.00)
== END | disposition home or self-care (01) ==
LOC: LABWHC1 07:21
PROVIDERS: ATTEND Internal Medicine Interventional Cardiology
DX: E78.2 Mixed hyperlipidemia (principal)
CPT/HCPCS: 36415; 80053; 80061

== ENCOUNTER → 2024-04-04 | Outpatient (CLI) | payer MEDICARE, BC ==
[2024-04-04 10:58] LABS: ALT 23 U/L (10-49); AST 26 U/L (14-35); Albumin 3.9 g/dL (3.8-4.9); Albumin/Globulin Ratio 1.86 Ratio (1.60-3.17); Alkaline Phosphatase 73 U/L (41-126); Blood Urea Nitrogen 16.5 mg/dL (9.0-27.0); Carbon Dioxide 24.4 mmol/L (21.6-31.8); Chloride 102 mmol/L (96-109); Globulin 2.1 g/dL (1.6-3.3); Glucose 107 mg/dL (70-110); LDL Cholesterol,Calculated 62.8 mg/dL (0.0-131.0); Potassium 4.3 mmol/L (3.5-5.5); Sodium 137 mmol/L (135-145); Total Bilirubin 0.3 mg/dL (0.3-1.2); VLDL Calculation 14.48 mg/dL (5.00-40.00)
== END | disposition home or self-care (01) ==
LOC: LABWHC1 06:52
PROVIDERS: ATTEND Internal Medicine Interventional Cardiology
DX: E78.2 Mixed hyperlipidemia (principal)
CPT/HCPCS: 36415; 80053; 80061

== ENCOUNTER 2024-04-09 10:10 | Day surgery (SDC) | payer MEDICARE, BC ==
[2024-04-04 13:18] VITALS: BMI 30.4
[2024-04-09 10:51] VITALS: RESP 16; TEMP 98
[2024-04-09] MEDS: LIDOCAINE 1% (10MG/ML) FOR IV START INTRADERMA ONE (10:58)
[2024-04-09] MEDS: LACTATED RINGERS 1,000 ML IV SCH (10:58)
[2024-04-09] MEDS: IV FLUID CONTINUATION 1,000 ML IV ONE (10:58)
[2024-04-09] MEDS ORDERED: PROPOFOL 10 MG/ML 20 ML VIAL IV ONE (12:02)
--- NOTE | 2024-04-09 12:25 | P.PCN ---
Date of Procedure: 04/09/24 Procedure(s) Performed: BRIEF HISTORY: Patient is a 78-year-old pleasant white male scheduled for an elective colonoscopy as a part of evaluation for history of colon polyps. PROCEDURE PERFORMED: Colonoscopy with cold snare polypectomy. PREOPERATIVE DIAGNOSIS: History of colon polyps. IV sedation per Anesthesia. PROCEDURE: After informed consent was obtained, the patient, was brought into the endoscopy unit. IV sedation was administered by Anesthesia under continuous monitoring. Digital rectal examination was normal. Initially the Olympus CF-160 flexible video colonoscope was then inserted in the rectum, gradually advanced into the cecum without any difficulty. Careful examination was performed as the scope was gradually being withdrawn. Ileocecal valve and the appendiceal orifice were visualized and appeared normal. Prep was excellent. Mucosa of the cecum, ascending colon, normal. The transverse colon there was a 3 mm, 5 mm and 7 mm polyps all which were removed by cold snare polypectomy. Rest of the transverse colon, descending colon, sigmoid colon, and rectum appeared normal. Scattered sigmoid diverticulosis. Retroflexion was performed in the rectum and no lesions were seen. The patient tolerated the procedure well. IMPRESSION: Colt 3 mm, 5 mm and 7 mm transverse colon polyp status post cold snare polypectomy Scattered sigmoid diverticulosis. RECOMMENDATIONS: Findings of this examination were discussed with the patient as well as his family. He was advised. To follow with the biopsy results. If the biopsy reveals adenoma he can have repeat colonoscopy in 3 years
[2024-04-09 12:45] VITALS: BP 129/83; PULSE 71
== END 2024-04-09 12:50 | disposition home or self-care (01) ==
LOC: ORWHC2ENDO 10:10
PROVIDERS: ATTEND Internal Medicine Gastroenterology
DX: Z12.11 Encounter for screening for malignant neoplasm of colon (principal); D12.3 Benign neoplasm of transverse colon; K57.30 Diverticulosis of large intestine without perforation or abscess without bleeding; I10 Essential (primary) hypertension; E78.5 Hyperlipidemia, unspecified; J44.9 Chronic obstructive pulmonary disease, unspecified; F17.210 Nicotine dependence, cigarettes, uncomplicated; Z85.46 Personal history of malignant neoplasm of prostate; Z86.010 Personal history of colon polyps; Z79.899 Other long term (current) drug therapy; Z79.82 Long term (current) use of aspirin
CPT/HCPCS: 45385; 88305

== ENCOUNTER → 2024-11-22 | Outpatient (CLI) | payer MEDICARE, BC | END | disposition home or self-care (01) | LOC: LABWHC1 13:46 | PROVIDERS: ATTEND Urology | DX: C61 Malignant neoplasm of prostate (principal) | CPT/HCPCS: 36415; 84153 ==